=== PATIENT | male | born 1950 | race Hispanic/Latino ===

== ENCOUNTER 2019-10-02 09:54 | Observation (INO) | payer MEDICARE ==
[2019-10-02 13:49] VITALS: BMI 35.6
[2019-10-02] MEDS ORDERED: Nitroglycerin 0.4 MG TAB (25 Tab Bottle) PO PRN (14:21)
[2019-10-02] MEDS ORDERED: Sodium Chloride 0.9% 1,000 ML IV SCH (14:30)
[2019-10-02 14:36] LABS: Hemoglobin A1c 5.6 % (4.0-6.0)
[2019-10-02] MEDS ORDERED: Acetaminophen 325 MG TAB PO PRN (14:36)
[2019-10-02 14:51] LABS: Cardiac Risk 3.1 (Less than 4.5)
[2019-10-02 14:54] LABS: Troponin I Less than 0.010 ng/mL (< 0.028)
[2019-10-02] MEDS ORDERED: Sodium Chloride 0.9% 500 ML IV SCH (15:00)
--- NOTE | 2019-10-02 15:14 | PDOC.HHP ---
Hospitalist HPI - History of Present Illness Chest pain History of Present Illness: 69/M with PMH significant for HTN and paroxsysmal afib (not on anticoagulation) presents for chest pain and headache. History is obtained from patient, who is a poor historian. Reports that he awoke, at 0300, with chest pain, located on his left chest wall/ axilla, describes as pressure, pain scale 8/10, exacerbated with deep inhalation , relieved by nothing. Reports associated SOB and nausea. Also reports a frontal headache, describes as pressure, states that he often gets this same type of headache when his blood pressure goes up or "kicks in". Denies any vision changes, difficulty speaking or extremity weakness, treated by taking his amlodipine early, as he often does when he gets a headache like thi He called his girlfriend, who recommended that he go to the emergency department , however, he did not go immediately because he cannot drive a vehicle in the darkness. The pain persisted for the next several hours, so at 0600 [address] himself to the ER. ED Course: [place] [facility] EKG Sinus tachycardia, HR 114, no significant ST or T wave changes Trop negative DD 722 ng/ml BNP 20.2 CTA chest no evidence of large or central PE Patchy areas of atelectasis
[2019-10-02] MEDS ORDERED: Furosemide 40 MG/4 ML VIAL SLOW IVP SCH (15:30)
--- NOTE | 2019-10-02 16:54 | PDOC.HHP ---
Hospitalist HPI - History of Present Illness Chest pain and headache History of Present Illness: Patient is a poor historian. 69/M with PMH significant for HTN and paroxsysmal afib, taking ASA 81mg daily, presents for chest pain and headache. Patient reports waking up at approximately 0300 with significant frontal headache, describes as pressure, states that he often gets this type of headache when his blood pressure is elevated or "kicks in". Denies any vision changes, speech difficulties or weakness to extremities. Treated by taking his morning dose of amlodipine early, as he often does when he gets similar headaches. Also reports left sided chest pain, located near left axilla, describes as pressure at times, painful when touched, exacerbated with deep inhalation and relieved by nothing. Patient reports associated SOB and swelling to lower extremities. He noticed he has had intermittent dyspnea with light exertion over the past 2-3 months. Denies any heart palpitations, light headedness, cough , and orthopnea. Denies fever and chills. The patient is unable to drive in the dark, so he waited until sunrise and drove himself to the Emergency Department in [place] for persistent headache and chest pain. ED Course: [place] [facility] EKG Sinus tachycardia, HR 114, no ST elevations Troponin negative D-Dimer 722 ng/ml CTA chest No evidence of large or central PE CXR Minimal central venous congestion but no distinct interstitial edema There is a cluster of slightly prominent vessels versus mild atelectasis versus less likely minimal infiltrate in the right lung base BNP 20.2 Given ASA 243mg Nitro SL x 2 Morphine and zofran Maalox w/ viscous lidocaine Hospitalist ROS - Review of Systems Constitutional: denies: fever, chills Eyes: denies: vision change ENT: denies: nose congestion, throat pain Respiratory: reports: shortness of breath, SOB with excertion, pleuritic pain. denies: cough, hemoptysis Cardiovascular: reports: chest pain, edema. denies: palpitations, light headedness Gastrointestinal: reports: nausea. 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 Gastrointestinal: reports: no pertinent history Heme/Onc: reports: no pertinent history Hepatobiliary: reports: no pertinent history Psych: reports: no pertinent history Musculoskeletal: reports: no pertinent history Rheumatologic: reports: no pertinent history Renal/: reports: no pertinent history Endocrine: reports: no pertinent history Dermatology: reports: no pertinent history - Past Surgical History Past Surgical History: reports: Other (Bilateral knee scope) - Family History Family History: reports: cardiac disorder (Father, , [place]) - Social History Smoking Status: Former smoker (quit 12 years) Alcohol: reports: None (quit 6 years) Drugs: reports: none Living Situation: Alone Occupation: lives in [place], works for [employer] Activity level: independent ambulation - Exam General Appearance: NAD, awake alert Eye: PERRL ENT: normocephalic atraumatic Neck: supple, no JVD, no thyromegaly Heart: RRR, no murmur, no gallops, no rubs, normal peripheral pulses Respiratory: CTAB, no wheezes, no rales, no ronchi Respiratory - other findings: diminished in lower lobes Gastrointestinal: soft, non-tender, normal bowel sounds, no guarding, no rigidity Extremities: no cyanosis, no clubbing, 2+ LE edema Skin: no rashes Neurological: cranial nerve grossly intact, no focal deficits Musculoskeletal: normal tone, normal strength Psychiatric: normal affect, A&O x 3 Hospitalist Results - Labs Lab results: Troponin I Less than 0.010 ng/mL (< 0.028) 10/02/19 14:17 B-Natriuretic Peptide 47.6 pg/mL (0-100) 10/02/19 14:17 Na 132 K 4.5 CL 108 CO2 25 BUN 12 Creatinine 1.0 GFR 60 Glucose 113 Ca 9.1 WBC 11.6 Hgb 13.4 Hct 40.1 Plat 243 AST 31 ALT 20 ALP 69 UA unremarkable - EKG Interpretation EKG: Sinus Tachycardia, HR 114 - Radiology Interpretation CT scan - chest Status: report reviewed by me Hospitalist H&P A/P - Plan Plan: Impression: SOB/CARNEY, suspected acute diastolic HF Chest pain, reproducible with palpation, rule out ACS Headache, chronic, likely secondary to uncontrolled HTN HTN Hyponatremia, mild Impaired fasting glucose Non-compliance CKD II Plan: Cardiac monitoring Repeat troponins Continue ASA Lasix IV, fluid restriction, O2 prn Order echocardiogram Consult cardiology Consult cardiac rehab NPO after midnight Check TSH and FLP and HA1C Stop amlodipine, start lisinopril Recheck BMP, CBC and Mg in AM DVT prophylaxis Full Code
[2019-10-02] MEDS ORDERED: Enalaprilat Dihydrate 1.25 MG/ML VIAL SLOW IVP PRN (17:48)
[2019-10-02 18:30] LABS: Troponin I Less than 0.010 ng/mL (< 0.028)
--- NOTE | 2019-10-02 19:32 | PRG ---
DATE OF SERVICE: 10/02/2019 The patient was seen and examined with the KANDI Rose. I agree with HPI, physical examination, and plan of care as outlined by Billy Hooper. In summary, the patient is a 69-year-old male with paroxysmal atrial fibrillation and hypertension, who presented to the emergency room with chest discomfort along with headache. The patient has been short of breath on mild exertion recently. He also noticed bilateral lower extremity swelling. No fever or chills reported. His chest discomfort is localized on his left-sided rib cage under his armpits, which is aggravated by palpation. His pulmonary embolism was ruled out. On examination, there is significant reproducible tenderness over his left-sided rib cage. His chest x-ray showed pulmonary vascular congestion. An echocardiogram will be obtained. His symptoms are probably consistent with acute diastolic heart failure. We will rule out ACS with serial troponins. We will change amlodipine to KASHIF inhibitor. We will add fluid restriction. Continue aspirin. We will start him on IV diuretics. Recheck labs in a.m. FINAL DIAGNOSES: 1. Shortness of breath with dyspnea on exertion, suspected due to acute diastolic heart failure exacerbation. 2. Reproducible chest pain, rule out acute coronary syndrome. 3. Hypertension. 4. Medication noncompliance. 5. Chronic headaches, probably secondary to uncontrolled hypertension. 6. Hyponatremia. 7. Chronic kidney disease, stage 2. 8. Impaired fasting glucose. Job ID: [id number]
[2019-10-02] MEDS: Lisinopril 5 MG TAB PO SCH (20:21)
[2019-10-02] MEDS ORDERED: Lisinopril 2.5 MG TAB PO SCH (21:00)
[2019-10-02] MEDS ORDERED: Enoxaparin Sodium 40 MG/0.4 ML SYRINGE SC SCH ×3 (21:00)
[2019-10-03 04:45] LABS: #Eosinphils 0.2 thou/uL (0.0-0.7); #Lymphocytes 1.3 thou/uL (1.20-3.40); #Monocytes 0.6 thou/uL (0.11-0.59); #Neutrophils 5.5 thou/uL (1.40-6.50); %Basophils 0.5 % (0.0-1.0); %Eosinophils 2.2 % (0.0-10.0); %Lymphocytes 17.2 % (21.0-51.0); %Monocytes 7.6 % (0.0-10.0); %Neutrophils 72.5 % (42.0-75.0); Hemoglobin 12.1 g/dL (14.0-18.0); Mean Corpuscular HGB CONC 31.7 g/dL (32.0-36.0); Mean Corpuscular Hemoglobin 27.5 pg (27.0-31.0); Mean Corpuscular Volume 86.7 fL (78.0-98.0); Mean Platelet Volume 7.1 fL (7.4-10.4); Platelet Count 224 thou/uL (130-400); RBC Distribution Width 13.8 % (11.5-14.5); Red Blood Cell (RBC) Count 4.41 mill/uL (4.70-6.10); White Blood Cell (WBC) Count 7.6 thou/uL (4.8-10.8)
[2019-10-03 05:06] LABS: Anion Gap 9 mmol/L (10-20); BUN (Urea Nitrogen) 16 mg/dL (8.4-25.7); Calc. Creatinine Clearance 90 mL/min (70-130); Calcium 8.8 mg/dL (7.8-10.44); Carbon Dioxide 31 mmol/L (23-31); Chloride 104 mmol/L (98-107); Estimated GFR-MDRD 70; Glucose 100 mg/dL (80-115); Magnesium 2.1 mg/dL (1.6-2.6); Potassium 4.3 mmol/L (3.5-5.1); Sodium 140 mmol/L (136-145)
[2019-10-03] MEDS ORDERED: Furosemide 20 MG/2 ML VIAL SLOW IVP SCH ×2 (06:00→14:00)
[2019-10-03] MEDS: Lisinopril 5 MG TAB PO SCH (08:39)
[2019-10-03] MEDS ORDERED: FLU VACC TS2019-20(65YR UP)/PF 180 MCG/0.5 ML SYRINGE IM ONE (09:00)
[2019-10-03] MEDS ORDERED: Prevnar 13-Val Conj/PF 0.5 ML SYRINGE IM ONE (09:00)
[2019-10-03] MEDS ORDERED: Amlodipine 5 MG TAB PO SCH (09:00)
[2019-10-03] MEDS ORDERED: Aspirin 81 mg Enteric Coated Tablet PO SCH (09:00)
[2019-10-03] MEDS ORDERED: Benzonatate 100 MG CAP PO PRN (11:00)
[2019-10-03] MEDS ORDERED: Guaifenesin DM 100-10/5 ML UDCUP PO PRN (11:01)
[2019-10-03] MEDS ORDERED: Furosemide 40 MG/4 ML VIAL SLOW IVP SCH (14:00)
[2019-10-03 16:25] VITALS: BP 101/59; TEMP 98
--- NOTE | 2019-10-03 18:07 | CON ---
DATE OF CONSULTATION: 10/03/2019 REASON FOR CONSULTATION: Chest pain. HISTORY OF PRESENT ILLNESS: Mr. Hong is a very pleasant 69-year-old gentleman, who has been evaluated in the past by Dr. Gil here in the hospital, who comes in for evaluation of headache. He was found to have elevated blood pressures in the ER and was giving medications to lower his blood pressure. He states that he has chronic chest pains. He has had them for a long time. The pain is on the left side of the chest towards the arm. It is easily reproducible with palpation and hurts when he moves his chest around. He has had an evaluation of this before. He had a left heart catheterization around 2016 and 2016 in [facility] and was found to have normal coronaries. On my evaluation, he states that his headache is much better. His blood pressure is much better controlled. It is actually on the low side and feels a lot better than he did when he came in. PAST MEDICAL HISTORY: 1. History of paroxysmal atrial fibrillation. 2. Hypertension. PAST SURGICAL HISTORY: 1. Right knee surgery. 2. Heart catheterization in 2015 in [facility], which was thought to be normal. SOCIAL HISTORY: Social alcohol use. No tobacco or drugs. OUTPATIENT MEDICATIONS: 1. Aspirin 81 a day. 2. Amlodipine 5 mg a day. ALLERGIES: PENICILLINS. REVIEW OF SYSTEMS: A 12-point review of systems was done and was all negative unless stated in the history of present illness. FAMILY HISTORY: Father of a heart attack, but does not remember the age. Mother had lung cancer. PHYSICAL EXAMINATION: VITAL SIGNS: Temperature 98.0, pulse 66, respiratory rate 16, saturating 93% on room air, and blood pressure 101/59. GENERAL: Awake, alert, and oriented x3, in no distress. HEENT: Normocephalic and atraumatic. NECK: Supple. LUNGS: Clear. CARDIOVASCULAR: S1 and S2. No S3 or S4. No murmurs. ABDOMEN: Soft. Positive bowel sounds. EXTREMITIES: No edema. SKIN: Warm and dry. LABORATORY DATA: Laboratory work was reviewed. CBC with a white count of 7.6, hemoglobin 12.1, hematocrit 38, and platelet count 224. Chemistry was unremarkable. Troponin is undetectable x2. Triglycerides of 58, LDL of 112, HDL of 59. TSH was normal. EKG was unremarkable. No evidence of ischemia. Echocardiogram was reviewed, showed EF of 55% to 60%. There is [id number] mitral regurgitation. ASSESSMENT: 1. Chest pain. Atypical, most likely musculoskeletal. 2. Headache. 3. Hypertension. PLAN: 1. Chest pain is likely musculoskeletal in nature as I am able to reproduce the pain very easily by palpating the left-sided chest wall. More than likely, this was chest wall pain. He had a negative heart catheterization in about 3-1/2 years ago, his troponins are completely negative. Echocardiogram shows no changes in LV function. An EKG is unremarkable. At this point in time, his chest pain is most likely musculoskeletal. 2. Blood pressure is much better controlled. His headache is gone. 3. For his paroxysmal atrial fibrillation, his score is 2 for age and hypertension. He would like to discuss with his primary care physician after starting full anticoagulation, this is Dr. at [facility]. Thank you for letting us participate in the care of your patient. Dr. Gil, primary manager marketing will follow up in the morning. If he is still here, but no further cardiac workup is warranted. Job ID: [id number]
--- NOTE | 2019-10-03 19:15 | DIS ---
DATE OF ADMISSION: 10/02/2019 DATE OF DISCHARGE: 10/03/2019 DISCHARGE DISPOSITION: Home. FOLLOWUP: 1. Follow up with primary care physician, Dr. Barrera, in 1 week. 2. Follow up with primary furnace roaster or Dr. Abernathy in 1 week. BRIEF HOSPITAL COURSE: The patient is a 69-year-old male with paroxysmal atrial fibrillation and hypertension, presented to the emergency room with chest discomfort along with shortness of breath. Please refer to the history and physical for further details. The patient was admitted to the hospital with a diagnosis of chest discomfort, rule out acute coronary syndrome along with shortness of breath. He was started on gentle diuresis. His serial troponins were negative. The patient was evaluated by Cardiology, Dr. Abernathy. It was later found out that the patient had a cardiac catheterization 2 or 3 years ago at [facility], which showed normal coronaries. He also complained of chronic headaches that has improved today. His headaches are probably due to uncontrolled blood pressure. He has been started on lisinopril. Due to generalized edema, amlodipine has been discontinued. He underwent echocardiogram that showed left ventricular ejection fraction of 55% to 60% with [id number] mitral regurgitation. He has been cleared by Cardiology for discharge. FINAL DIAGNOSES: 1. Atypical chest pain, suspected musculoskeletal. 2. Shortness of breath with dyspnea on exertion, probably secondary to uncontrolled blood pressure, resolved. Congestive heart failure ruled out. 3. Hypertension with hypertensive urgency. 4. Chronic headaches due to uncontrolled blood pressure. 5. Medication noncompliance. 6. Hyponatremia. 7. Chronic kidney disease, stage 2. 8. Impaired fasting glucose. DISCHARGE MEDICATIONS: 1. Lisinopril 5 mg daily. 2. Aspirin 81 mg daily. 3. Lasix as needed. The patient understands the above plan of care. He was extensively counseled to follow up with his primary care physician. A repeat basic metabolic profile next week is recommended. Primary care physician advised to follow. Job ID: [id number]
[2019-10-04] MEDS ORDERED: Lisinopril 5 MG TAB PO SCH (09:00)
== END 2019-10-03 19:32 | disposition home or self-care (01) ==
LOC: 2SW 13:32
PROVIDERS: ADMIT Internal Medicine; ATTEND Internal Medicine
DX: I16.0 Hypertensive urgency (principal); I12.9 Hypertensive chronic kidney disease with stage 1 through stage 4 chronic kidney disease, or unspecified chronic kidney disease; N18.2 Chronic kidney disease, stage 2 (mild); I48.0 Paroxysmal atrial fibrillation; E87.1 Hypo-osmolality and hyponatremia; Z79.82 Long term (current) use of aspirin; Z79.899 Other long term (current) drug therapy; Z91.14 Patient's other noncompliance with medication regimen
CPT/HCPCS: 80048; 80061; 83036; 83735 ×2; 83880; 84443; 84484 ×2; 85025; 90662; 90670; 93306; 94640; 96372; 96374; 96376; G0008; G0009; G0378 ×2; 36415; 90471; J1650; J1940; J7620

== ENCOUNTER 2020-10-31 15:01 | Inpatient (IN) | payer MEDICARE ==
[~2020-10-31 15:01] MED LIST: Iopamidol-370 76% 500 ML 1 ML ONE
[2020-10-31] MEDS ORDERED: Morphine 4 MG/ML VIAL ONE (15:59)
[2020-10-31] MEDS ORDERED: Ondansetron PF 4 MG/2 ML Vial ONE (15:59)
[2020-10-31 16:03] LABS: #Eosinphils 0.2 thou/uL (0.0-0.7); #Lymphocytes 1.5 thou/uL (1.20-3.40); #Monocytes 0.5 thou/uL (0.11-0.59); #Neutrophils 4.3 thou/uL (1.40-6.50); %Basophils 0.5 % (0.0-1.0); %Eosinophils 2.7 % (0.0-10.0); %Lymphocytes 23.3 % (21.0-51.0); %Monocytes 7.4 % (0.0-10.0); %Neutrophils 66.2 % (42.0-75.0); Hemoglobin 12.6 g/dL (14.0-18.0); Mean Corpuscular HGB CONC 33.6 g/dL (32.0-36.0); Mean Corpuscular Hemoglobin 29.6 pg (27.0-31.0); Mean Corpuscular Volume 88.2 fL (78.0-98.0); Mean Platelet Volume 7.6 fL (7.4-10.4); Platelet Count 218 thou/uL (130-400); RBC Distribution Width 12.9 % (11.5-14.5); Red Blood Cell (RBC) Count 4.26 mill/uL (4.70-6.10); White Blood Cell (WBC) Count 6.5 thou/uL (4.8-10.8)
[2020-10-31 16:23] LABS: ALT (SGPT) 13 U/L (8-55); AST (SGOT) 24 U/L (5-34); Albumin 3.8 g/dL (3.4-4.8); Alkaline Phosphatase 72 U/L (40-110); Anion Gap 16 mmol/L (10-20); BUN (Urea Nitrogen) 20 mg/dL (8.4-25.7); Bilirubin, Total 0.3 mg/dL (0.2-1.2); Calc. Creatinine Clearance 0 mL/min (70-130); Carbon Dioxide 19 mmol/L (23-31); Chloride 106 mmol/L (98-107); Globulin 3.7 g/dL (2.4-3.5); Glucose 105 mg/dL (80-115); Potassium 4.7 mmol/L (3.5-5.1); Protein, Total 7.5 g/dL (5.8-8.1); Sodium 136 mmol/L (136-145)
[2020-10-31] MEDS ORDERED: Ketorolac Tromethamine 30 MG/ML VIAL ONE (17:51)
[2020-10-31] MEDS ORDERED: hydrALAZINE 20 MG/ML VIAL SLOW IVP PRN (18:33)
[2020-10-31 19:40] LABS: Troponin I Less than 0.010 ng/mL (< 0.028)
[2020-10-31] MEDS ORDERED: Ondansetron PF 4 MG/2 ML Vial IVP PRN (20:45)
[2020-10-31] MEDS ORDERED: Ondansetron ODT 4 MG TAB SL PRN (20:45)
[2020-10-31 22:17] LABS: Troponin I Less than 0.010 ng/mL (< 0.028)
[2020-10-31] MEDS: Acetaminophen 325 MG TAB PO PRN (23:40)
[2020-11-01 00:44] VITALS: BMI 34.2
[2020-11-01 02:11] LABS: SARS-CoV-2 PCR NAA for Saliva Not Detected (NotDetected)
[2020-11-01 04:56] LABS: #Eosinphils 0.2 thou/uL (0.0-0.7); #Lymphocytes 1.4 thou/uL (1.20-3.40); #Monocytes 0.4 thou/uL (0.11-0.59); #Neutrophils 2.7 thou/uL (1.40-6.50); %Basophils 0.6 % (0.0-1.0); %Eosinophils 3.6 % (0.0-10.0); %Lymphocytes 29.7 % (21.0-51.0); %Monocytes 8.2 % (0.0-10.0); %Neutrophils 57.8 % (42.0-75.0); Hemoglobin 11.1 g/dL (14.0-18.0); Mean Corpuscular HGB CONC 32.4 g/dL (32.0-36.0); Mean Corpuscular Hemoglobin 28.6 pg (27.0-31.0); Mean Corpuscular Volume 88.5 fL (78.0-98.0); Mean Platelet Volume 7.8 fL (7.4-10.4); Platelet Count 200 thou/uL (130-400); RBC Distribution Width 13.1 % (11.5-14.5); Red Blood Cell (RBC) Count 3.87 mill/uL (4.70-6.10); White Blood Cell (WBC) Count 4.6 thou/uL (4.8-10.8)
[2020-11-01 05:11] LABS: Anion Gap 10 mmol/L (10-20); BUN (Urea Nitrogen) 21 mg/dL (8.4-25.7); Calc. Creatinine Clearance 78 mL/min (70-130); Calcium 8.5 mg/dL (7.8-10.44); Carbon Dioxide 24 mmol/L (23-31); Chloride 105 mmol/L (98-107); Glucose 99 mg/dL (80-115); Sodium 135 mmol/L (136-145)
[2020-11-01] MEDS: Acetaminophen 325 MG TAB PO PRN (06:12)
[2020-11-01] MEDS: Lisinopril/Hydrochlorothiazide 20 mg/12.5 mg Tablet PO SCH (07:58)
[2020-11-01] MEDS ORDERED: Lisinopril 5 MG TAB PO SCH (09:00)
[2020-11-01] MEDS: HYDROcodone/Acetaminophen 5/325 mg Tablet PO PRN ×2 (11:43→16:32)
[2020-11-02] MEDS: HYDROcodone/Acetaminophen 5/325 mg Tablet PO PRN ×2 (05:47→11:00)
[2020-11-02] MEDS: Lisinopril/Hydrochlorothiazide 20 mg/12.5 mg Tablet PO SCH (08:05)
[2020-11-02 16:07] VITALS: BP 131/75; TEMP 97.8
== END 2020-11-02 18:49 | disposition home or self-care (01) | DRG 312 ==
LOC: ERS 15:01 → 2NO 18:10 → OBSVTOIN 11-02 12:46
PROVIDERS: ADMIT Internal Medicine; ATTEND Internal Medicine
DX: R55 Syncope and collapse (principal); I48.0 Paroxysmal atrial fibrillation; N18.2 Chronic kidney disease, stage 2 (mild); I12.9 Hypertensive chronic kidney disease with stage 1 through stage 4 chronic kidney disease, or unspecified chronic kidney disease; R00.1 Bradycardia, unspecified; I16.0 Hypertensive urgency; Z88.0 Allergy status to penicillin; Z79.899 Other long term (current) drug therapy; Z98.890 Other specified postprocedural states; Z79.82 Long term (current) use of aspirin; Z20.822 Contact with and (suspected) exposure to COVID-19
CPT/HCPCS: 36415; 70450; 71260; 72125; 74177; 80048; 80053; 82550; 84484; 85025; 87635; 93005; 93306; 93880; 96374; 96375; G0378; J1885; J2270; J2405; Q9967; U0003; U0005

== ENCOUNTER 2022-04-16 15:01 | Inpatient (IN) | payer MEDICARE, OTHER ==
[2022-04-16 16:32] LABS: #Basophils 0.1 thou/uL (0.0-0.2); #Eosinphils 0.1 thou/uL (0.0-0.7); #Lymphocytes 1.1 thou/uL (1.20-3.40); #Monocytes 0.4 thou/uL (0.11-0.59); #Neutrophils 3.9 thou/uL (1.40-6.50); %Basophils 0.9 % (0.0-1.0); %Eosinophils 2.4 % (0.0-10.0); %Monocytes 7.1 % (0.0-10.0); %Neutrophils 69.6 % (42.0-75.0); Hemoglobin 11.2 g/dL (14.0-18.0); Mean Corpuscular HGB CONC 33.7 g/dL (32.0-36.0); Mean Corpuscular Hemoglobin 30.8 pg (27.0-31.0); Mean Corpuscular Volume 91.5 fL (78.0-98.0); Mean Platelet Volume 7.8 fL (7.4-10.4); Platelet Count 198 thou/uL (130-400); RBC Distribution Width 12.8 % (11.5-14.5); Red Blood Cell (RBC) Count 3.62 mill/uL (4.70-6.10); White Blood Cell (WBC) Count 5.6 thou/uL (4.8-10.8)
[2022-04-16 16:46] LABS: ALT (SGPT) 8 U/L (8-55); AST (SGOT) 15 U/L (5-34); Albumin 3.6 g/dL (3.4-4.8); Alkaline Phosphatase 75 U/L (40-110); Anion Gap 14 mmol/L (10-20); BUN (Urea Nitrogen) 32 mg/dL (8.4-25.7); Bilirubin, Total 0.2 mg/dL (0.2-1.2); CK (CPK) 191 U/L (30-200); Calc. Creatinine Clearance 0 mL/min (70-130); Calcium 8.9 mg/dL (7.8-10.44); Carbon Dioxide 25 mmol/L (23-31); Chloride 106 mmol/L (98-107); Estimated GFR 49; Globulin 3.4 g/dL (2.4-3.5); Glucose 131 mg/dL (80-115); Magnesium 1.8 mg/dL (1.6-2.6); Potassium 4.6 mmol/L (3.5-5.1); Sodium 140 mmol/L (136-145)
[2022-04-16 20:12] LABS: Troponin I Less than 0.010 ng/mL (< 0.028)
[2022-04-16] MEDS ORDERED: Atorvastatin Calcium 40 MG TAB PO SCH (21:00)
[2022-04-16] MEDS: Apixaban 5 MG TAB PO SCH (21:06)
[2022-04-16 21:20] LABS: Ferritin 273.25 ng/mL (22-322)
[2022-04-16 21:40] LABS: SARS-CoV-2 NAA Rapid Test Not Detected (NotDetected)
[2022-04-16 22:12] LABS: Free T4 (Free Thyroxine) 0.83 ng/dL (0.70-1.48)
[2022-04-16 23:42] VITALS: BMI 34.7
[2022-04-16 23:42] LABS: Troponin I Less than 0.010 ng/mL (< 0.028)
[2022-04-17 04:47] LABS: #Eosinphils 0.2 thou/uL (0.0-0.7); #Lymphocytes 1.3 thou/uL (1.20-3.40); #Monocytes 0.5 thou/uL (0.11-0.59); #Neutrophils 5.3 thou/uL (1.40-6.50); %Basophils 0.5 % (0.0-1.0); %Eosinophils 3.4 % (0.0-10.0); %Monocytes 6.1 % (0.0-10.0); %Neutrophils 71.9 % (42.0-75.0); Hemoglobin 11.1 g/dL (14.0-18.0); Mean Corpuscular HGB CONC 33.8 g/dL (32.0-36.0); Mean Corpuscular Hemoglobin 30.8 pg (27.0-31.0); Mean Corpuscular Volume 91.2 fL (78.0-98.0); Mean Platelet Volume 7.8 fL (7.4-10.4); Platelet Count 201 thou/uL (130-400); White Blood Cell (WBC) Count 7.4 thou/uL (4.8-10.8)
[2022-04-17 05:11] LABS: Anion Gap 12 mmol/L (10-20); BUN (Urea Nitrogen) 24 mg/dL (8.4-25.7); Calc. Creatinine Clearance 75 mL/min (70-130); Calcium 8.7 mg/dL (7.8-10.44); Carbon Dioxide 25 mmol/L (23-31); Chloride 109 mmol/L (98-107); Estimated GFR 63; Glucose 99 mg/dL (80-115); Potassium 4.5 mmol/L (3.5-5.1); Sodium 141 mmol/L (136-145)
[2022-04-17] MEDS ORDERED: Acetaminophen 500 MG TAB PO PRN (06:27)
[2022-04-17] MEDS ORDERED: Lisinopril/Hydrochlorothiazide 20 mg/12.5 mg Tablet PO SCH (09:00)
[2022-04-17] MEDS ORDERED: Enoxaparin Sodium 40 MG/0.4 ML SYRINGE SC SCH (09:00)
[2022-04-17] MEDS ORDERED: Aspirin 81 mg Enteric Coated Tablet PO SCH (09:00)
[2022-04-17] MEDS: Apixaban 5 MG TAB PO SCH (09:20)
[2022-04-17 11:38] VITALS: BP 130/80; TEMP 97.5
== END 2022-04-17 13:25 | disposition home or self-care (01) | DRG 309 ==
LOC: ERS 15:01 → 2NO 17:46
PROVIDERS: ADMIT Family Medicine; ATTEND Family Medicine
DX: I48.0 Paroxysmal atrial fibrillation (principal); N17.9 Acute kidney failure, unspecified; Z20.822 Contact with and (suspected) exposure to COVID-19; I25.10 Atherosclerotic heart disease of native coronary artery without angina pectoris; I10 Essential (primary) hypertension; E78.5 Hyperlipidemia, unspecified; D64.9 Anemia, unspecified; R00.1 Bradycardia, unspecified; Z96.653 Presence of artificial knee joint, bilateral; Z60.2 Problems related to living alone; Z88.0 Allergy status to penicillin; Z79.82 Long term (current) use of aspirin; Z91.14 Patient's other noncompliance with medication regimen; Z95.5 Presence of coronary angioplasty implant and graft; Z79.899 Other long term (current) drug therapy; Z82.49 Family history of ischemic heart disease and other diseases of the circulatory system; Z87.891 Personal history of nicotine dependence
CPT/HCPCS: 36415; 71045; 80048; 80053; 82550; 82607; 82728; 83735; 84439; 84443; 84481; 84484; 85025; 93005; U0002

== ENCOUNTER 2023-04-24 12:29 | Inpatient (IN) | payer MEDICARE ==
[2023-04-24] MEDS ORDERED: dilTIAZem 125 MG/25 ML SDV ONE (12:59)
[2023-04-24 13:12] LABS: #Basophils 0.1 thou/uL (0.0-0.2); #Monocytes 0.5 thou/uL (0.11-0.59); #Neutrophils 7.8 thou/uL (1.40-6.50); %Basophils 0.5 % (0.0-1.0); %Eosinophils 0.3 % (0.0-10.0); %Lymphocytes 10.4 % (21.0-51.0); %Monocytes 4.8 % (0.0-10.0); %Neutrophils 83.7 % (42.0-75.0); Hematocrit 36.5 % (42.0-52.0); Hemoglobin 12.5 g/dL (14.0-18.0); Mean Corpuscular HGB CONC 34.2 g/dL (32.0-36.0); Mean Corpuscular Hemoglobin 28.5 pg (27.0-31.0); Mean Corpuscular Volume 83.3 fl (78.0-98.0); Mean Platelet Volume 9.8 fL (7.4-10.4); Platelet Count 235 10x3/uL (130-400); RBC Distribution Width 14.7 % (11.5-14.5); Red Blood Cell (RBC) Count 4.38 mill/uL (4.70-6.10); White Blood Cell (WBC) Count 9.3 10x3/uL (4.8-10.8)
[2023-04-24 13:33] LABS: Troponin I Less than 0.010 ng/mL (< 0.028)
[2023-04-24 13:36] LABS: ALT (SGPT) 9 U/L (8-55); AST (SGOT) 15 U/L (5-34); Albumin 3.7 g/dL (3.4-4.8); Alkaline Phosphatase 65 U/L (40-110); Anion Gap 13 mmol/L (10-20); BUN (Urea Nitrogen) 26 mg/dL (8.4-25.7); Bilirubin, Total 0.4 mg/dL (0.2-1.2); Calc. Creatinine Clearance 0 mL/min (70-130); Calcium 10.2 mg/dL (7.8-10.44); Carbon Dioxide 21 mmol/L (23-31); Chloride 106 mmol/L (98-107); Estimated GFR 45; Globulin 3.6 g/dL (2.4-3.5); Glucose 109 mg/dL (83-110); Potassium 3.7 mmol/L (3.5-5.1); Protein, Total 7.3 g/dL (5.8-8.1); Sodium 136 mmol/L (136-145)
[2023-04-24] MEDS ORDERED: Aspirin Chewable 81 MG TAB ONE (14:53)
[2023-04-24] MEDS ORDERED: Acetaminophen 325 MG TAB PO PRN (17:59)
[2023-04-24] MEDS ORDERED: Ondansetron ODT 4 MG TAB PO PRN (17:59)
[2023-04-24] MEDS ORDERED: Ondansetron PF 4 MG/2 ML Vial IVP PRN (17:59)
[2023-04-24 18:05] VITALS: BMI 39.7
[2023-04-24 18:06] LABS: Troponin I Less than 0.010 ng/mL (< 0.028)
[2023-04-24] MEDS ORDERED: Morphine 4 MG/ML VIAL SLOW IVP PRN (18:49)
[2023-04-24] MEDS ORDERED: dilTIAZem 125 MG in Sodium Chloride 0.9% 100 ML IVPB SCH (19:00)
[2023-04-24] MEDS ORDERED: hydrALAZINE 20 MG/ML VIAL SLOW IVP PRN (19:03)
[2023-04-24] MEDS: Famotidine 20 MG TAB PO SCH (20:01)
[2023-04-24] MEDS: Heparin 5,000 UNITS/ML VIAL SC SCH (20:02)
[2023-04-24] MEDS: Flecainide 50 MG TAB PO SCH (20:02)
[2023-04-24] MEDS: Atorvastatin Calcium 40 MG TAB PO SCH (20:02)
[2023-04-24] MEDS ORDERED: Nitroglycerin 2% Ointment 1 INCH/1 GM Packet TOP SCH (21:00)
[2023-04-24 21:45] LABS: Bacteria/HPF None Seen HPF (None Seen); Bilirubin Negative (Negative); Blood, Urine Negative (Negative); Clarity Clear (Clear); Glucose, Urine (Dipstick) Normal (Negative); Ketone, Urine Negative (Negative); Leukocyte Negative Leu/uL (Negative); Nitrite Negative (Negative); Protein, Urine (Dipstick) Negative (Neg-Trace); RBC/HPF 0-3 HPF (0-3); Specific Gravity, Urine 1.011 (1.002-1.036); Squamous Epithelial None Seen HPF (0-3); Urobilinogen Normal mg/dL (Less than 2); WBC/HPF None Seen HPF (0-3)
[2023-04-24] MEDS ORDERED: dilTIAZem 125 MG, Admixture Fee 1 EACH in Sodium Chloride 0.9% 100 ML IVPB SCH (23:45)
[2023-04-25 07:16] LABS: #Basophils 0.1 thou/uL (0.0-0.2); #Eosinphils 0.2 thou/uL (0.0-0.7); #Monocytes 0.4 thou/uL (0.11-0.59); #Neutrophils 3.9 thou/uL (1.40-6.50); %Basophils 1.1 % (0.0-1.0); %Eosinophils 2.6 % (0.0-10.0); %Lymphocytes 20.5 % (21.0-51.0); %Monocytes 6.8 % (0.0-10.0); %Neutrophils 68.6 % (42.0-75.0); Hematocrit 38.4 % (42.0-52.0); Hemoglobin 12.6 g/dL (14.0-18.0); Mean Corpuscular HGB CONC 32.8 g/dL (32.0-36.0); Mean Corpuscular Hemoglobin 28.2 pg (27.0-31.0); Mean Platelet Volume 9.7 fL (7.4-10.4); Platelet Count 223 10x3/uL (130-400); RBC Distribution Width 14.9 % (11.5-14.5); Red Blood Cell (RBC) Count 4.47 mill/uL (4.70-6.10); White Blood Cell (WBC) Count 5.7 10x3/uL (4.8-10.8)
[2023-04-25 07:20] LABS: Anion Gap 8 mmol/L (10-20); BUN (Urea Nitrogen) 21 mg/dL (8.4-25.7); Calc. Creatinine Clearance 80 mL/min (70-130); Calcium 9.2 mg/dL (7.8-10.44); Carbon Dioxide 24 mmol/L (23-31); Cardiac Risk 4.6 (Less than 4.5); Chloride 109 mmol/L (98-107); Cholesterol 182 mg/dl (< 200 Desired); Estimated GFR 63; Glucose 100 mg/dL (83-110); HDL Cholesterol 40 mg/dL (>60 Neg Risk); LDL Cholesterol, Calculated 126 mg/dL; Potassium 4.2 mmol/L (3.5-5.1); Sodium 137 mmol/L (136-145); Triglycerides 81 mg/dL (Less than 150)
[2023-04-25 07:21] LABS: Mean Corpuscular Volume 85.9 fl (78.0-98.0)
[2023-04-25] MEDS: NIFEdipine XL 60 MG TAB PO SCH (09:10)
[2023-04-25] MEDS: Aspirin Chewable 81 MG TAB PO SCH (09:11)
[2023-04-25] MEDS: Flecainide 50 MG TAB PO SCH ×2 (09:11→21:10)
[2023-04-25] MEDS: Heparin 5,000 UNITS/ML VIAL SC SCH ×2 (09:11→21:10)
[2023-04-25] MEDS: HYDROcodone/Acetaminophen 5/325 mg Tablet PO PRN ×3 (09:17→22:22)
[2023-04-25] MEDS: Atorvastatin Calcium 40 MG TAB PO SCH (21:10)
[2023-04-25] MEDS: Famotidine 20 MG TAB PO SCH (21:10)
[2023-04-26] MEDS: Heparin 5,000 UNITS/ML VIAL SC SCH (09:57)
[2023-04-26] MEDS: Aspirin Chewable 81 MG TAB PO SCH (09:57)
[2023-04-26] MEDS: NIFEdipine XL 60 MG TAB PO SCH (09:57)
[2023-04-26] MEDS: HYDROcodone/Acetaminophen 5/325 mg Tablet PO PRN (09:58)
[2023-04-26] MEDS ORDERED: Amiodarone 150 MG in Dextrose 5% in Water 100 ML IVPB SCH (10:00)
[2023-04-26] MEDS ORDERED: Amiodarone 450 MG in Dextrose 5% in Water 250 ML IVPB SCH (10:00)
[2023-04-26] MEDS: Flecainide 50 MG TAB PO SCH ×2 (12:21→21:50)
[2023-04-26] MEDS: Atorvastatin Calcium 40 MG TAB PO SCH (21:49)
[2023-04-26] MEDS: Famotidine 20 MG TAB PO SCH (21:50)
[2023-04-27] MEDS ORDERED: PROPOFOL 40 ML ONE (07:48)
[2023-04-27] MEDS ORDERED: Sodium Chloride 0.9% 1,000 ML IV SCH (08:15)
[2023-04-27] MEDS: Aspirin Chewable 81 MG TAB PO SCH (10:09)
[2023-04-27] MEDS: NIFEdipine XL 60 MG TAB PO SCH (10:09)
[2023-04-27] MEDS: Flecainide 50 MG TAB PO SCH (10:11)
[2023-04-27 10:14] VITALS: BP 115/69
[2023-04-27 14:54] VITALS: TEMP 98
[2023-04-27] MEDS ORDERED: Apixaban 5 MG TAB PO SCH (21:00)
== END 2023-04-27 17:27 | disposition home or self-care (01) | DRG 309 ==
LOC: ERS 12:29 → IMCU/EMU 17:45
PROVIDERS: ADMIT Hospitalist; ATTEND Internal Medicine
PROC: B245ZZ4 Ultrasonography of Left Heart, Transesophageal (ICD-10-PCS; principal; 2023-04-27)
PROC: 5A2204Z Restoration of Cardiac Rhythm, Single (ICD-10-PCS; 2023-04-27)
DX: I48.0 Paroxysmal atrial fibrillation (principal); E87.1 Hypo-osmolality and hyponatremia; E87.20 Acidosis, unspecified; N17.9 Acute kidney failure, unspecified; I10 Essential (primary) hypertension; E78.5 Hyperlipidemia, unspecified; I25.10 Atherosclerotic heart disease of native coronary artery without angina pectoris; R04.0 Epistaxis; D63.8 Anemia in other chronic diseases classified elsewhere; Z95.818 Presence of other cardiac implants and grafts; Z88.0 Allergy status to penicillin; Z79.899 Other long term (current) drug therapy; Z98.890 Other specified postprocedural states; Z82.49 Family history of ischemic heart disease and other diseases of the circulatory system; Z80.1 Family history of malignant neoplasm of trachea, bronchus and lung
CPT/HCPCS: 36415; 36416; 71045; 80048; 80053; 80061; 81001; 84443; 84484; 85025; 85379; 92960; 93005; 93010; 93306; 93312; 94760; 96361; 96365; 96366; J1644; J1650; J2704; J7050

== ENCOUNTER 2023-06-11 21:09 | Observation (INO) | payer MEDICARE ==
[2023-06-11 22:23] LABS: #Basophils 0.1 thou/uL (0.0-0.2); #Eosinphils 0.2 thou/uL (0.0-0.7); #Monocytes 0.6 thou/uL (0.11-0.59); #Neutrophils 4.7 thou/uL (1.40-6.50); %Basophils 0.8 % (0.0-1.0); %Eosinophils 2.9 % (0.0-10.0); %Lymphocytes 21.4 % (21.0-51.0); %Neutrophils 66.2 % (42.0-75.0); Hematocrit 35.8 % (42.0-52.0); Hemoglobin 12.2 g/dL (14.0-18.0); Mean Corpuscular HGB CONC 34.1 g/dL (32.0-36.0); Mean Corpuscular Hemoglobin 29.3 pg (27.0-31.0); Mean Corpuscular Volume 86.1 fl (78.0-98.0); Mean Platelet Volume 9.7 fL (7.4-10.4); Platelet Count 234 10x3/uL (130-400); RBC Distribution Width 14.3 % (11.5-14.5); Red Blood Cell (RBC) Count 4.16 mill/uL (4.70-6.10); White Blood Cell (WBC) Count 7.2 10x3/uL (4.8-10.8)
[2023-06-11 22:47] LABS: ALT (SGPT) 16 U/L (8-55); AST (SGOT) 17 U/L (5-34); Albumin 4.3 g/dL (3.4-4.8); Alkaline Phosphatase 75 U/L (40-110); Anion Gap 15 mmol/L (10-20); BUN (Urea Nitrogen) 20 mg/dL (8.4-25.7); Bilirubin, Total 0.2 mg/dL (0.2-1.2); Calc. Creatinine Clearance 0 mL/min (70-130); Calcium 9.2 mg/dL (7.8-10.44); Carbon Dioxide 19 mmol/L (23-31); Chloride 104 mmol/L (98-107); Estimated GFR 57; Globulin 3.5 g/dL (2.4-3.5); Glucose 99 mg/dL (83-110); Potassium 3.9 mmol/L (3.5-5.1); Protein, Total 7.8 g/dL (5.8-8.1); Sodium 134 mmol/L (136-145)
[2023-06-11 22:51] LABS: Troponin I Less than 0.010 ng/mL (< 0.028)
[2023-06-11] MEDS ORDERED: Nitroglycerin 2% Ointment 1 INCH/1 GM Packet ONE ×2 (23:03→23:04)
[2023-06-12] MEDS ORDERED: Acetaminophen 325 MG TAB PO PRN (00:09)
[2023-06-12] MEDS ORDERED: Ondansetron ODT 4 MG TAB PO PRN (00:09)
[2023-06-12] MEDS ORDERED: Ondansetron PF 4 MG/2 ML Vial IVP PRN (00:09)
[2023-06-12 02:39] VITALS: BMI 39.1
[2023-06-12] MEDS ORDERED: Aspirin Chewable 81 MG TAB PO SCH (03:00)
[2023-06-12 03:56] LABS: #Basophils 0.1 thou/uL (0.0-0.2); #Eosinphils 0.2 thou/uL (0.0-0.7); #Monocytes 0.5 thou/uL (0.11-0.59); #Neutrophils 4.5 thou/uL (1.40-6.50); %Basophils 0.9 % (0.0-1.0); %Eosinophils 2.7 % (0.0-10.0); %Lymphocytes 20.1 % (21.0-51.0); %Neutrophils 68.8 % (42.0-75.0); Hematocrit 33.5 % (42.0-52.0); Hemoglobin 11.1 g/dL (14.0-18.0); Mean Corpuscular HGB CONC 33.1 g/dL (32.0-36.0); Mean Corpuscular Hemoglobin 28.9 pg (27.0-31.0); Mean Corpuscular Volume 87.2 fl (78.0-98.0); Mean Platelet Volume 9.2 fL (7.4-10.4); Platelet Count 223 10x3/uL (130-400); RBC Distribution Width 14.2 % (11.5-14.5); Red Blood Cell (RBC) Count 3.84 mill/uL (4.70-6.10); White Blood Cell (WBC) Count 6.6 10x3/uL (4.8-10.8)
[2023-06-12 04:18] LABS: Anion Gap 11 mmol/L (10-20); BUN (Urea Nitrogen) 19 mg/dL (8.4-25.7); Calc. Creatinine Clearance 81 mL/min (70-130); Calcium 8.8 mg/dL (7.8-10.44); Carbon Dioxide 24 mmol/L (23-31); Chloride 107 mmol/L (98-107); Estimated GFR 63; Glucose 103 mg/dL (83-110); Potassium 4.1 mmol/L (3.5-5.1); Sodium 138 mmol/L (136-145)
[2023-06-12 04:24] LABS: Troponin I Less than 0.010 ng/mL (< 0.028)
[2023-06-12 06:13] LABS: Hemoglobin A1c 5.5 % (4.0-6.0)
[2023-06-12 06:14] LABS: Cardiac Risk 4.3 (Less than 4.5)
[2023-06-12 07:04] LABS: Troponin I Less than 0.010 ng/mL (< 0.028)
[2023-06-12] MEDS ORDERED: Famotidine/PF 20 mg/2ml Vial SLOW IVP SCH (07:54)
[2023-06-12] MEDS ORDERED: ADENOSINE 60 MG/20 ML SDV ONE (08:37)
[2023-06-12] MEDS ORDERED: Apixaban 5 MG TAB PO SCH (09:00)
[2023-06-12] MEDS ORDERED: Nitroglycerin 2% Ointment 1 INCH/1 GM Packet TOP SCH (09:00)
[2023-06-12] MEDS ORDERED: Flecainide 50 MG TAB PO SCH (09:00)
[2023-06-12] MEDS ORDERED: NIFEdipine XL 60 MG ER.TAB PO SCH (09:00)
[2023-06-12] MEDS ORDERED: Lisinopril/Hydrochlorothiazide 20 mg/12.5 mg Tablet PO SCH (09:00)
[2023-06-12 13:58] VITALS: BP 141/67; TEMP 98.7
[2023-06-12] MEDS ORDERED: Atorvastatin Calcium 40 MG TAB PO SCH (21:00)
== END 2023-06-12 16:05 | disposition home or self-care (01) ==
LOC: ERS 21:09 → 2SW 23:40
PROVIDERS: ADMIT Student in an Organized Health Care Education/Training Program; ATTEND Student in an Organized Health Care Education/Training Program
DX: R07.89 Other chest pain (principal); E87.1 Hypo-osmolality and hyponatremia; I25.10 Atherosclerotic heart disease of native coronary artery without angina pectoris; I48.0 Paroxysmal atrial fibrillation; I12.9 Hypertensive chronic kidney disease with stage 1 through stage 4 chronic kidney disease, or unspecified chronic kidney disease; N18.31 Chronic kidney disease, stage 3a; E78.5 Hyperlipidemia, unspecified; D64.9 Anemia, unspecified; Z95.5 Presence of coronary angioplasty implant and graft; Z79.82 Long term (current) use of aspirin; Z79.899 Other long term (current) drug therapy; Z79.01 Long term (current) use of anticoagulants; Z88.0 Allergy status to penicillin
CPT/HCPCS: 71045; 78452; 80048; 80053; 80061; 83036; 83880; 84443; 84484 ×3; 85025 ×2; 93005; 93017; 93971; 96374; 99285; A9500; G0378 ×2; 36415; J0153; S0028

== ENCOUNTER 2023-08-02 11:24 | Emergency (ER) | payer MEDICARE ==
[~2023-08-02 11:24] MED LIST changes: -Iopamidol-370 76% 500 ML 1 ML ONE; +Iopamidol-370 76% 500 ML MDV (1 ML CHARGE) ONE
[2023-08-02 11:41] LABS: #Basophils 0.1 thou/uL (0.0-0.2); #Eosinphils 0.1 thou/uL (0.0-0.7); #Monocytes 0.4 thou/uL (0.11-0.59); #Neutrophils 6.1 thou/uL (1.40-6.50); %Basophils 0.6 % (0.0-1.0); %Eosinophils 0.8 % (0.0-10.0); %Lymphocytes 21.1 % (21.0-51.0); %Monocytes 4.5 % (0.0-10.0); %Neutrophils 72.8 % (42.0-75.0); Hematocrit 37.2 % (42.0-52.0); Hemoglobin 12.6 g/dL (14.0-18.0); Mean Corpuscular HGB CONC 33.9 g/dL (32.0-36.0); Mean Corpuscular Hemoglobin 28.7 pg (27.0-31.0); Mean Corpuscular Volume 84.7 fl (78.0-98.0); Platelet Count 259 10x3/uL (130-400); RBC Distribution Width 13.6 % (11.5-14.5); Red Blood Cell (RBC) Count 4.39 mill/uL (4.70-6.10); White Blood Cell (WBC) Count 8.4 10x3/uL (4.8-10.8)
[2023-08-02 12:07] LABS: ALT (SGPT) 11 U/L (8-55); AST (SGOT) 16 U/L (5-34); Albumin 4.1 g/dL (3.4-4.8); Alkaline Phosphatase 85 U/L (40-110); Anion Gap 17 mmol/L (10-20); BUN (Urea Nitrogen) 25 mg/dL (8.4-25.7); Bilirubin, Total 0.4 mg/dL (0.2-1.2); Calc. Creatinine Clearance 0 mL/min (70-130); Calcium 9.5 mg/dL (7.8-10.44); Carbon Dioxide 22 mmol/L (23-31); Chloride 102 mmol/L (98-107); Estimated GFR 38; Globulin 4.2 g/dL (2.4-3.5); Glucose 110 mg/dL (83-110); Magnesium 1.7 mg/dL (1.6-2.6); Potassium 4.3 mmol/L (3.5-5.1); Protein, Total 8.3 g/dL (5.8-8.1); Sodium 137 mmol/L (136-145)
[2023-08-02 12:11] LABS: Troponin I Less than 0.010 ng/mL (< 0.028)
[2023-08-02] MEDS ORDERED: hydrOXYzine 25 MG TAB ONE (12:55)
== END 2023-08-02 13:49 | disposition home or self-care (01) ==
LOC: ERS 11:24
DX: F41.9 Anxiety disorder, unspecified (principal); R06.02 Shortness of breath; I48.91 Unspecified atrial fibrillation; I10 Essential (primary) hypertension; Z79.01 Long term (current) use of anticoagulants; Z79.899 Other long term (current) drug therapy
CPT/HCPCS: 71045; 71275; 74177; 80053; 83690; 83735; 83880; 84484; 85025; 93005; Q9967

== ENCOUNTER 2024-07-08 11:00 | Emergency (ER) | payer MEDICARE ==
[2024-07-08] MEDS ORDERED: Acetaminophen 500 MG TAB ONE (12:55)
[2024-07-08] MEDS ORDERED: Metoclopramide HCl 10 MG (2 mL) VIAL ONE (14:15)
[2024-07-08 14:39] LABS: #Basophils 0.06 10x3/uL (0.0-0.2); %Basophils 0.7 % (0.0-1.0); %Eosinophils 1.4 % (0.0-10.0); %Lymphocytes 16.7 % (21.0-51.0); %Monocytes 4.5 % (0.0-10.0); %Neutrophils 76.5 % (42.0-75.0); Hematocrit 34.5 % (42.0-52.0); Hemoglobin 11.7 g/dL (14.0-18.0); Mean Corpuscular HGB CONC 33.9 g/dL (32.0-36.0); Mean Corpuscular Hemoglobin 28.5 pg (27.0-31.0); Mean Corpuscular Volume 84.1 fL (78.0-98.0); Mean Platelet Volume 9.6 fL (7.4-10.4); Platelet Count 236 10x3/uL (130-400); RBC Distribution Width 14.6 % (11.5-14.5)
[2024-07-08 15:10] LABS: INR-International Normal Ratio 1.1; Prothrombin Time 14.5 sec (12.0-14.7)
[2024-07-08 15:11] LABS: PTT 27.1 sec (22.9-36.1)
[2024-07-08 15:14] LABS: ALT (SGPT) 11 U/L (8-55); AST (SGOT) 17 U/L (5-34); Albumin 3.8 g/dL (3.4-4.8); Alkaline Phosphatase 71 U/L (40-110); Anion Gap 12 mmol/L (10-20); BUN (Urea Nitrogen) 29 mg/dL (8.4-25.7); Bilirubin, Total 0.2 mg/dL (0.2-1.2); Calc. Creatinine Clearance 0 mL/min (70-130); Calcium 9.4 mg/dL (7.8-10.44); Carbon Dioxide 23 mmol/L (23-31); Chloride 107 mmol/L (98-107); Estimated GFR 39; Globulin 4.3 g/dL (2.4-3.5); Glucose 101 mg/dL (83-110); Potassium 4.1 mmol/L (3.5-5.1); Protein, Total 8.1 g/dL (5.8-8.1); Sodium 138 mmol/L (136-145)
[2024-07-08 15:17] LABS: Troponin I Less than 0.010 ng/mL (< 0.028)
[2024-07-08] MEDS ORDERED: Magnesium 2 GM/50 ML BAG (IN WATER) ONE (16:10)
[2024-07-08] MEDS ORDERED: methylPREDNISolone Sod Succ/PF 125 MG/2 ML VIAL ONE (16:11)
== END 2024-07-08 17:20 | disposition home or self-care (01) ==
LOC: ERS 11:00
DX: R51.9 Headache, unspecified (principal); R53.1 Weakness; I12.9 Hypertensive chronic kidney disease with stage 1 through stage 4 chronic kidney disease, or unspecified chronic kidney disease; N18.9 Chronic kidney disease, unspecified; R29.702 NIHSS score 2; W06.XXXA Fall from bed, initial encounter; I25.10 Atherosclerotic heart disease of native coronary artery without angina pectoris; I48.91 Unspecified atrial fibrillation; Z79.01 Long term (current) use of anticoagulants; Z79.899 Other long term (current) drug therapy
CPT/HCPCS: 70450; 70496; 70498; 71045; 72125; 80053; 84484; 85025; 85610; 85730; 86850; 86900; 86901; 93005; 94760; J2765; J2919; J3475; 36415; 96365; 96367; 96375